=== PATIENT | male | born 1970 | race Two or more races ===

== ENCOUNTER 2023-03-03 16:32 | Emergency (ER) | payer BC, OTHER ==
[2023-03-03] MEDS ORDERED: Amoxicillin/Clavulanate K 875-125 MG Tab PO ONE (17:28)
[2023-03-03] MEDS ORDERED: Gentamicin 0.3% Ophth Soln 5 ML Bottle EARLF SCH ×2 (18:15→21:00)
== END 2023-03-03 18:00 | disposition home or self-care (01) ==
LOC: JD.ED 16:32
DX: H60.312 Diffuse otitis externa, left ear (principal); H66.005 Acute suppurative otitis media without spontaneous rupture of ear drum, recurrent, left ear
CPT/HCPCS: 99282; A9270; 99283